=== PATIENT | female | born 1950 | race Caucasian/White ===

== ENCOUNTER 2017-04-06 16:58 | Inpatient (IN) | payer OTHER ==
[~2017-04-06] VITALS: Ht 170.2 cm; Wt 106.0 kg
[~2017-04-06 16:58] MED LIST: CEFUROXIME SODIUM 1.5 GM VIAL IVP SCH
[2017-04-06] MEDS ORDERED: TICAGRELOR 90 MG TABLET ONE (17:04)
[2017-04-06] MEDS ORDERED: HEPARIN SODIUM 5000UNIT/ML 1ML VIAL ONE (17:06)
[2017-04-06] MEDS ORDERED: ONDANSETRON HCL 4 MG/2 ML VIAL ONE (17:07)
[2017-04-06 17:14] LABS: BASOPHILS % (AUTO) 0.4 % (0.0-5.0); EOSINOPHILS % (AUTO) 1.8 % (0.0-8.0); HEMATOCRIT 40.7 % (36-48); LYMPHOCYTES % (AUTO) 21.7 % (21.0-51.0); MEAN CORPUSCULAR HEMOGLOBIN 29.6 pg (27.0-33.0); MEAN CORPUSCULAR HGB CONC 32.5 g/dL (32.0-36.0); MEAN CORPUSCULAR VOLUME 91.1 fL (79-99); MONOCYTES % (AUTO) 5.1 % (3.0-13.0); PLATELET COUNT (AUTO) 310 K/uL (130-400); RED BLOOD CELL COUNT(AUTO) 4.47 MIL/uL (4.00-5.50); RED CELL DISTRIBUTION WIDTH 13.4 % (11.0-15.5); WHITE BLOOD COUNT (AUTO) 12.9 K/uL (4.8-10.8)
[2017-04-06] MEDS ORDERED: IOPAMIDOL-370 75 ML VIAL IV ONE (17:23)
[2017-04-06] MEDS ORDERED: ATROPINE SULFATE 0.1 MG/ML 10 ML SYG IVP ONE (17:23)
[2017-04-06] MEDS ORDERED: NITROGLYCERIN 5 MG/ML 10 ML VIAL IV ONE (17:23)
[2017-04-06] MEDS ORDERED: HEPARIN SODIUM 1000UNIT/ML 10ML VIAL ONE ×4 (17:23→19:13)
[2017-04-06] MEDS ORDERED: IOPAMIDOL-370 100 ML VIAL IV ONE (17:23)
[2017-04-06] MEDS ORDERED: LIDOCAINE HCL 2% 20ML ONE (17:23)
[2017-04-06] MEDS ORDERED: DOPAMINE HCL 400 MG/D5%-WATER 0 ML IV ONE (17:23)
[2017-04-06 17:36] LABS: POTASSIUM 3.4 mmol/L (3.5-5.1)
[2017-04-06] MEDS ORDERED: CEFUROXIME 1.5GM+NS 100ML 100 ML IV SCH (18:00)
[2017-04-06 18:37] LABS: HEMOGLOBIN A1C 5.9 % (4.0-6.0)
[2017-04-06] MEDS ORDERED: PROPOFOL 10 MG/ML 20ML VIAL IV ONE (18:40)
[2017-04-06] MEDS ORDERED: GLYCOPYRROLATE 0.2 MG/ML 5 ML VIAL ONE (18:40)
[2017-04-06] MEDS ORDERED: ESMOLOL HCL 10 MG/ML 10 ML VIAL ONE (18:40)
[2017-04-06] MEDS ORDERED: AMIODARONE HCL 900MG/18ML IV ONE (18:40)
[2017-04-06] MEDS ORDERED: CALCIUM CHLORIDE 100 MG/ML 10 ML SYG IVP ONE ×2 (18:40→18:43)
[2017-04-06] MEDS ORDERED: NOREPINEPHRINE BITARTRATE 1 MG/1 ML ML IV ONE (18:40)
[2017-04-06] MEDS ORDERED: AMINOCAPROIC ACID 250 MG/ML 20 ML VIAL IV ONE (18:40)
[2017-04-06] MEDS ORDERED: MILRINONE-D5W 20 MG/100 ML 0 ML IV ONE (18:40)
[2017-04-06] MEDS ORDERED: PROTAMINE SULFATE 10 MG/ML 25ML VIAL IV ONE (18:40)
[2017-04-06] MEDS ORDERED: ROCURONIUM BROMIDE 10MG/1ML 5ML VL ONE (18:40)
[2017-04-06] MEDS ORDERED: EPINEPHRINE 1 MG/ML AMPULE ONE (18:40)
[2017-04-06] MEDS ORDERED: LIDOCAINE PF 2% 5ML ABBOJECT ONE (18:40)
[2017-04-06] MEDS ORDERED: MIDAZOLAM HCL 1 MG/ML 5ML VIAL ONE (18:41)
[2017-04-06] MEDS ORDERED: FENTANYL CITRATE PF 50 MCG/1 ML 20ML VIAL IJ ONE (18:41)
[2017-04-06] MEDS ORDERED: THROMBIN-JMI 5000 UNIT/VIAL TP ONE (18:44)
[2017-04-06] MEDS ORDERED: SODIUM BICARB 50MEQ 50ML VIAL ONE ×2 (18:45→23:19)
[2017-04-06] MEDS ORDERED: CEFUROXIME SODIUM 1.5 GM VIAL IVP SCH (18:45)
[2017-04-06] MEDS ORDERED: NITROGLYCERIN 50 MG/D5% WATER 1 BOT ONE (18:46)
[2017-04-06 18:50] LABS: INR 1.08 (0.85-1.15); PROTHROMBIN TIME 11.3 SEC (9.6-11.6)
[2017-04-06 19:12] LABS: ABG BASE EXCESS -3.1 mmol/L (-2.0-3.0); ABG HCO3 21.6 mmol/L (21.0-28.0); ABG OXYGEN SATURATION 99.1 % (95.0-99.0); ABG PCO2 38 mmHg (32-45)
[2017-04-06] MEDS ORDERED: PAPAVERINE HCL 30 MG/ML 2ML VIAL ONE (19:13)
[2017-04-06] MEDS ORDERED: CEFUROXIME SODIUM 1.5 GM VIAL ONE (19:18)
[2017-04-06 19:39] LABS: PARTIAL THROMBOPLASTIN TIME > 120.0 SEC (26.3-35.5)
[2017-04-06 20:01] LABS: HEMATOCRIT 35.3 % (36-48); PLATELET COUNT (AUTO) 247 K/uL (130-400); PLATELET FUNCTION ANALYSIS EPI 188 SEC (55-192)
[2017-04-06 20:02] LABS: PLATELET FUNCTION ANALYSIS ADP 72 SEC (62-100)
[2017-04-06 20:03] LABS: BASOPHILS % (AUTO) 0.3 % (0.0-5.0); EOSINOPHILS % (AUTO) 0.5 % (0.0-8.0); HEMATOCRIT 35.3 % (36-48); LYMPHOCYTES % (AUTO) 15.3 % (21.0-51.0); MEAN CORPUSCULAR HGB CONC 32.7 g/dL (32.0-36.0); MEAN CORPUSCULAR VOLUME 91.8 fL (79-99); MONOCYTES % (AUTO) 5.1 % (3.0-13.0); NEUTROPHILS % (AUTO) 78.8 % (40.0-77.0); PLATELET COUNT (AUTO) 247 K/uL (130-400); RED BLOOD CELL COUNT(AUTO) 3.85 MIL/uL (4.00-5.50); RED CELL DISTRIBUTION WIDTH 13.6 % (11.0-15.5); WHITE BLOOD COUNT (AUTO) 13.1 K/uL (4.8-10.8)
[2017-04-06] MEDS: OCTYL 2-CYANOACRYLATE 1 EACH TP ONE ×2 (20:05→21:19)
[2017-04-06] MEDS: BACITRACIN 50,000 UNIT VIAL ONE ×2 (20:05→21:21)
[2017-04-06 20:07] LABS: ABG BASE EXCESS 2.3 mmol/L (-2.0-3.0); ABG HCO3 26.6 mmol/L (21.0-28.0); ABG OXYGEN SATURATION 98.9 % (95.0-99.0); ABG PCO2 40 mmHg (32-45)
[2017-04-06] MEDS ORDERED: SODIUM CHLORIDE 0.9% 500ML 500 ML IV SCH (20:09)
[2017-04-06] MEDS ORDERED: SODIUM CHLORIDE 0.9% 1000ML 1,000 ML IV SCH (20:15)
[2017-04-06] MEDS ORDERED: ONDANSETRON HCL 4 MG/2 ML VIAL IV PRN (20:15)
[2017-04-06] MEDS ORDERED: PROPOFOL 1000 MG/100 ML 100 ML IV PRN (20:15)
[2017-04-06] MEDS ORDERED: GLUCAGON 1MG KIT 1 MG ML IM PRN (20:15)
[2017-04-06] MEDS ORDERED: ACETAMINOPHEN 650 MG SUPPOSITORY RC PRN (20:15)
[2017-04-06] MEDS ORDERED: INSULIN REGULAR, HUMAN 3ML 100 UNIT in SODIUM CHLORIDE 0.9% 99 ML IV SCH ×2 (20:15)
[2017-04-06] MEDS ORDERED: SODIUM CHLORIDE 0.9% 10 ML VIAL IVP PRN (20:15)
[2017-04-06] MEDS ORDERED: NICARDIPINE HCL 100 MG in SODIUM CHLORIDE 0.9% 100 ML IV PRN (20:15)
[2017-04-06] MEDS ORDERED: AMINOCAPROIC ACID 15,000 MG in SODIUM CHLORIDE 0.9% 250 ML IV SCH (20:15)
[2017-04-06] MEDS ORDERED: NITROGLYCERIN 50 MG/D5% WATER 250 BOT IV SCH (20:15)
[2017-04-06] MEDS ORDERED: POTASSIUM PHOS 15 mMOL+NS250ML 250 ML IV PRN (20:15)
[2017-04-06] MEDS ORDERED: EPINEPHRINE 2 MG in SODIUM CHLORIDE 0.9% 250 ML IV PRN (20:15)
[2017-04-06] MEDS ORDERED: MAGNESIUM 2GM PREMIX 50ML 50 ML IV PRN (20:15)
[2017-04-06] MEDS ORDERED: CALCIUM GLUCONATE 1 GM in SODIUM CHLORIDE 0.9% 50 ML IV PRN (20:15)
[2017-04-06] MEDS ORDERED: NOREPINEPHRINE 4MG/NS 250ML 250 ML IV PRN (20:15)
[2017-04-06] MEDS ORDERED: DEXTROSE 50%-WATER 50 ML DISP.SYRIN IV PRN (20:15)
[2017-04-06] MEDS ORDERED: SODIUM CHLORIDE 0.9% 250 ML IV PRN (20:15)
[2017-04-06] MEDS ORDERED: ACETAMINOPHEN 325 MG TAB PO PRN (20:15)
[2017-04-06] MEDS ORDERED: SODIUM BICARB 8.4% 50ML SYRINGE IV PRN (20:15)
[2017-04-06 20:37] LABS: ABG BASE EXCESS -2.8 mmol/L (-2.0-3.0); ABG HCO3 22.8 mmol/L (21.0-28.0); ABG OXYGEN SATURATION 98.3 % (95.0-99.0); ABG PCO2 42 mmHg (32-45)
[2017-04-06] MEDS ORDERED: EPINEPHRINE 2 MG in SODIUM CHLORIDE 0.9% 250 ML IVP PRN (20:45)
[2017-04-06 21:05] VITALS: BP 128/73
[2017-04-06 21:15] VITALS: BP 141/79
[2017-04-06 21:30] VITALS: BP 156/99
[2017-04-06 21:35] LABS: ABG BASE EXCESS -2.6 mmol/L (-2.0-3.0); ABG HCO3 22.9 mmol/L (21.0-28.0); ABG OXYGEN SATURATION 95.4 % (95.0-99.0); ABG PCO2 42 mmHg (32-45)
[2017-04-06 21:45] LABS: HEMATOCRIT 34.1 % (36-48); MEAN CORPUSCULAR HEMOGLOBIN 29.6 pg (27.0-33.0); MEAN CORPUSCULAR HGB CONC 32.8 g/dL (32.0-36.0); MEAN CORPUSCULAR VOLUME 90.2 fL (79-99); PLATELET COUNT (AUTO) 296 K/uL (130-400); RED BLOOD CELL COUNT(AUTO) 3.77 MIL/uL (4.00-5.50); RED CELL DISTRIBUTION WIDTH 13.1 % (11.0-15.5)
[2017-04-06 21:47] LABS: WHITE BLOOD COUNT (AUTO) 30.9 K/uL (4.8-10.8)
[2017-04-06 21:56] LABS: CREATININE 0.8 mg/dL (0.5-1.5); MAGNESIUM 1.7 mg/dL (1.80-2.40); PHOSPHORUS 4.7 mg/dL (2.5-4.9); POTASSIUM 3.1 mmol/L (3.5-5.1)
[2017-04-06 22:00] VITALS: BP 142/80
[2017-04-06] MEDS: MORPHINE SULFATE 4 MG/1ML SYG IV PRN ×2 (22:18→23:56)
[2017-04-06] MEDS: POTASSIUM CHLORIDE 20MEQ/100ML 100 ML IV PRN (22:18)
[2017-04-06 22:30] VITALS: BP 135/70
[2017-04-06 22:33] LABS: BAND NEUTROPHILS % (MANUAL) 7 % (0-2); LYMPHOCYTES % (MANUAL) 18 % (22-44); MAN.DIFF COMMENT-IMPRESSION MANUAL DIFFERENTIAL; SEGMENTED NEUTROPHILS % 75 % (40-70)
[2017-04-06 22:35] LABS: PLATELET MORPHOLOGY COMMENT PLT CLUMPS PRESENT
[2017-04-06 23:00] VITALS: BP 139/76
[2017-04-06 23:18] LABS: ABG BASE EXCESS -4.9 mmol/L (-2.0-3.0); ABG HCO3 19.8 mmol/L (21.0-28.0); ABG OXYGEN SATURATION 97.4 % (95.0-99.0); ABG PCO2 36 mmHg (32-45)
[2017-04-07] VITALS (24 sets, daily range): BP systolic 100–128; BP diastolic 58–74
[2017-04-07 00:45] LABS: ABG BASE EXCESS -1.9 mmol/L (-2.0-3.0); ABG HCO3 22.9 mmol/L (21.0-28.0); ABG OXYGEN SATURATION 98.6 % (95.0-99.0); ABG PCO2 40 mmHg (32-45)
[2017-04-07] MEDS: HYDROCODONE/ACETAMINOPHEN 5/325 MG TAB PO PRN ×3 (01:43→12:34)
[2017-04-07] MEDS: POTASSIUM CHLORIDE 20MEQ/100ML 100 ML IV PRN (02:46)
[2017-04-07] MEDS: MORPHINE SULFATE 2 MG/ML 1ML SYG IV PRN ×3 (02:55→20:55)
[2017-04-07 03:28] LABS: HEMATOCRIT 34.2 % (36-48); MEAN CORPUSCULAR HEMOGLOBIN 29.9 pg (27.0-33.0); MEAN CORPUSCULAR HGB CONC 32.6 g/dL (32.0-36.0); MEAN CORPUSCULAR VOLUME 91.7 fL (79-99); PLATELET COUNT (AUTO) 336 K/uL (130-400); RED BLOOD CELL COUNT(AUTO) 3.72 MIL/uL (4.00-5.50); RED CELL DISTRIBUTION WIDTH 13.3 % (11.0-15.5); WHITE BLOOD COUNT (AUTO) 27.9 K/uL (4.8-10.8)
[2017-04-07 03:42] LABS: CREATININE 0.9 mg/dL (0.5-1.5); MAGNESIUM 2.7 mg/dL (1.80-2.40); PHOSPHORUS 3.7 mg/dL (2.5-4.9); POTASSIUM 4.2 mmol/L (3.5-5.1)
[2017-04-07] MEDS ORDERED: CEFUROXIME 1.5GM+NS 100ML 100 ML IV SCH (04:15)
[2017-04-07] MEDS ORDERED: crestor (04:43)
[2017-04-07] MEDS ORDERED: SERT100T PO (04:43)
[2017-04-07] MEDS: SERTRALINE HCL 50 MG TABLET PO SCH (08:19)
[2017-04-07] MEDS ORDERED: PANTOPRAZOLE 40 MG/VIAL IV SCH (09:00)
[2017-04-07] MEDS: PANTOPRAZOLE SODIUM 40 MG TABLET.DR PO SCH (09:35)
[2017-04-07] MEDS ORDERED: FUROSEMIDE 10 MG/ML 2ML VIAL IV ONE (17:15)
[2017-04-07] MEDS: ALBUMIN (HUMAN) 5% 250 ML IV PRN (17:29)
[2017-04-07] MEDS ORDERED: CEFUROXIME SODIUM 1.5 GM VIAL IVP SCH (17:45)
[2017-04-07] MEDS ORDERED: WATER FOR INJECTION,STERILE 20 ML VIAL IJ SCH ×2 (17:45→19:30)
[2017-04-07] MEDS ORDERED: IPRATROPIUM/ALBUTEROL SULFATE 3 ML SOLUTION IH PRN (20:00)
[2017-04-07] MEDS: ATORVASTATIN CALCIUM 10 MG TABLET PO SCH (20:55)
[2017-04-08] VITALS (21 sets, daily range): BP systolic 96–150; BP diastolic 53–88
[2017-04-08] MEDS: HYDROCODONE/ACETAMINOPHEN 5/325 MG TAB PO PRN ×3 (00:35→20:21)
[2017-04-08] MEDS: PANTOPRAZOLE SODIUM 40 MG TABLET.DR PO SCH (06:30)
[2017-04-08 06:49] LABS: BASOPHILS % (AUTO) 0.3 % (0.0-5.0); HEMATOCRIT 33.1 % (36-48); LYMPHOCYTES % (AUTO) 6.5 % (21.0-51.0); MEAN CORPUSCULAR HGB CONC 32.6 g/dL (32.0-36.0); MONOCYTES % (AUTO) 3.7 % (3.0-13.0); NEUTROPHILS % (AUTO) 89.5 % (40.0-77.0); PLATELET COUNT (AUTO) 217 K/uL (130-400); RED CELL DISTRIBUTION WIDTH 13.8 % (11.0-15.5); WHITE BLOOD COUNT (AUTO) 18.6 K/uL (4.8-10.8)
[2017-04-08 06:51] LABS: CREATININE 0.7 mg/dL (0.5-1.5); POTASSIUM 3.6 mmol/L (3.5-5.1)
[2017-04-08] MEDS: SERTRALINE HCL 50 MG TABLET PO SCH (08:33)
[2017-04-08] MEDS: METOPROLOL TARTRATE 25 MG TAB PO SCH ×2 (08:33→20:18)
[2017-04-08] MEDS: ASPIRIN 81MG TAB.CHEW PO SCH (08:33)
[2017-04-08] MEDS ORDERED: FUROSEMIDE 20 MG TABLET PO SCH (09:00)
[2017-04-08] MEDS: FUROSEMIDE 10 MG/ML 2ML VIAL IV SCH ×2 (09:11→20:18)
[2017-04-08] MEDS: POTASSIUM CHLORIDE 20 MEQ ERTAB PO SCH ×2 (09:12→20:18)
[2017-04-08] MEDS: ATORVASTATIN CALCIUM 10 MG TABLET PO SCH (20:22)
[2017-04-09] VITALS (8 sets, daily range): BP systolic 95–133; BP diastolic 58–87
[2017-04-09 04:01] LABS: HEMATOCRIT 35.2 % (36-48); MEAN CORPUSCULAR HEMOGLOBIN 29.9 pg (27.0-33.0); MEAN CORPUSCULAR HGB CONC 32.2 g/dL (32.0-36.0); MEAN CORPUSCULAR VOLUME 92.7 fL (79-99); PLATELET COUNT (AUTO) 255 K/uL (130-400); RED BLOOD CELL COUNT(AUTO) 3.79 MIL/uL (4.00-5.50); RED CELL DISTRIBUTION WIDTH 13.6 % (11.0-15.5); WHITE BLOOD COUNT (AUTO) 21.9 K/uL (4.8-10.8)
[2017-04-09 04:18] LABS: CREATININE 0.7 mg/dL (0.5-1.5); POTASSIUM 4.2 mmol/L (3.5-5.1)
[2017-04-09] MEDS: PANTOPRAZOLE SODIUM 40 MG TABLET.DR PO SCH (06:29)
[2017-04-09] MEDS: HYDROCODONE/ACETAMINOPHEN 5/325 MG TAB PO PRN ×3 (06:30→18:55)
[2017-04-09] MEDS: FUROSEMIDE 10 MG/ML 2ML VIAL IV SCH ×2 (08:08→20:26)
[2017-04-09] MEDS: POTASSIUM CHLORIDE 20 MEQ ERTAB PO SCH ×2 (08:12→20:27)
[2017-04-09] MEDS: SERTRALINE HCL 50 MG TABLET PO SCH (08:12)
[2017-04-09] MEDS: ASPIRIN 81MG TAB.CHEW PO SCH (08:12)
[2017-04-09] MEDS: METOPROLOL TARTRATE 25 MG TAB PO SCH ×2 (08:13→20:27)
[2017-04-09] MEDS: ATORVASTATIN CALCIUM 10 MG TABLET PO SCH (20:26)
[2017-04-10 00:37] VITALS: BP 111/64
[2017-04-10 04:00] VITALS: BP 128/73
[2017-04-10 05:19] LABS: HEMATOCRIT 33.1 % (36-48); MEAN CORPUSCULAR HEMOGLOBIN 30.3 pg (27.0-33.0); MEAN CORPUSCULAR HGB CONC 32.9 g/dL (32.0-36.0); MEAN CORPUSCULAR VOLUME 92.2 fL (79-99); PLATELET COUNT (AUTO) 240 K/uL (130-400); RED BLOOD CELL COUNT(AUTO) 3.59 MIL/uL (4.00-5.50); RED CELL DISTRIBUTION WIDTH 14.1 % (11.0-15.5); WHITE BLOOD COUNT (AUTO) 14.9 K/uL (4.8-10.8)
[2017-04-10 05:37] LABS: CREATININE 0.7 mg/dL (0.5-1.5); POTASSIUM 4.4 mmol/L (3.5-5.1)
[2017-04-10] MEDS: PANTOPRAZOLE SODIUM 40 MG TABLET.DR PO SCH (06:30)
[2017-04-10 07:44] VITALS: BP_SYST 121; BP_SYST 130; BP_DIAS 72; BP_DIAS 81
[2017-04-10] MEDS: METOPROLOL TARTRATE 25 MG TAB PO SCH ×2 (08:45→20:25)
[2017-04-10] MEDS: POTASSIUM CHLORIDE 20 MEQ ERTAB PO SCH ×2 (08:45→20:25)
[2017-04-10] MEDS: SERTRALINE HCL 50 MG TABLET PO SCH (08:45)
[2017-04-10] MEDS: ASPIRIN 81MG TAB.CHEW PO SCH (08:45)
[2017-04-10] MEDS: FUROSEMIDE 10 MG/ML 2ML VIAL IV SCH (08:54)
[2017-04-10] MEDS: HYDROCODONE/ACETAMINOPHEN 5/325 MG TAB PO PRN ×2 (09:20→17:12)
[2017-04-10 11:20] VITALS: BP 117/60
[2017-04-10 16:05] VITALS: BP 114/71
[2017-04-10] MEDS: FUROSEMIDE 20 MG TABLET PO SCH (17:02)
[2017-04-10 20:06] VITALS: BP 112/64
[2017-04-10] MEDS ORDERED: ATORVASTATIN CALCIUM 40 MG TABLET PO SCH (21:00)
[2017-04-11 00:12] VITALS: BP 114/75
[2017-04-11] MEDS: HYDROCODONE/ACETAMINOPHEN 5/325 MG TAB PO PRN (03:34)
[2017-04-11] MEDS: FUROSEMIDE 20 MG TABLET PO SCH (03:35)
[2017-04-11 04:31] VITALS: BP 123/79
[2017-04-11] MEDS: PANTOPRAZOLE SODIUM 40 MG TABLET.DR PO SCH (07:09)
[2017-04-11] MEDS ORDERED: CLOP75TA14 PO (07:33)
[2017-04-11] MEDS ORDERED: METO25 PO (07:33)
[2017-04-11] MEDS ORDERED: ASPI-1005 PO (07:33)
[2017-04-11 07:48] VITALS: BP 105/62
[2017-04-11] MEDS ORDERED: CLOPIDOGREL BISULFATE 75 MG TAB PO SCH (09:00)
[2017-04-11] MEDS: METOPROLOL TARTRATE 25 MG TAB PO SCH (09:14)
[2017-04-11] MEDS: ASPIRIN 81MG TAB.CHEW PO SCH (09:14)
[2017-04-11] MEDS: SERTRALINE HCL 50 MG TABLET PO SCH (09:14)
[2017-04-11] MEDS: POTASSIUM CHLORIDE 20 MEQ ERTAB PO SCH (09:15)
[2017-04-11] MEDS ORDERED: TRAM50TA2 PO (09:36)
[2017-04-11] MEDS ORDERED: ATOR40TA69 PO (09:36)
[2017-04-11 11:18] VITALS: BP 116/74
== END 2017-04-11 13:40 | disposition home or self-care (01) | DRG 233 ==
LOC: EDH 16:58 → EDHIP 17:15 → 2CV 19:46 → 2CH 04-07 11:30 → 2AH 04-09 10:40
PROVIDERS: ADMIT Internal Medicine Cardiovascular Disease; ATTEND Internal Medicine Cardiovascular Disease
PROC: 4A023N7 Measurement of Cardiac Sampling and Pressure, Left Heart, Percutaneous Approach (ICD-10-PCS; 2017-04-06)
PROC: 5A02210 Assistance with Cardiac Output using Balloon Pump, Continuous (ICD-10-PCS; 2017-04-06)
PROC: B2111ZZ Fluoroscopy of Multiple Coronary Arteries using Low Osmolar Contrast (ICD-10-PCS; 2017-04-06)
PROC: B2151ZZ Fluoroscopy of Left Heart using Low Osmolar Contrast (ICD-10-PCS; 2017-04-06)
PROC: 02100Z9 Bypass Coronary Artery, One Artery from Left Internal Mammary, Open Approach (ICD-10-PCS; principal; 2017-04-06 18:50)
PROC: 021009W Bypass Coronary Artery, One Artery from Aorta with Autologous Venous Tissue, Open Approach (ICD-10-PCS; 2017-04-06 18:50)
PROC: 06BQ4ZZ Excision of Left Saphenous Vein, Percutaneous Endoscopic Approach (ICD-10-PCS; 2017-04-06 18:50)
DX: I21.4 Non-ST elevation (NSTEMI) myocardial infarction (principal); R57.0 Cardiogenic shock; D62 Acute posthemorrhagic anemia; I25.2 Old myocardial infarction; R06.89 Other abnormalities of breathing; I25.10 Atherosclerotic heart disease of native coronary artery without angina pectoris; I25.5 Ischemic cardiomyopathy; E66.9 Obesity, unspecified; E78.5 Hyperlipidemia, unspecified; E83.42 Hypomagnesemia; F32.9 Major depressive disorder, single episode, unspecified; G47.33 Obstructive sleep apnea (adult) (pediatric); I10 Essential (primary) hypertension; Z79.82 Long term (current) use of aspirin; Z79.899 Other long term (current) drug therapy; Z82.49 Family history of ischemic heart disease and other diseases of the circulatory system; Z87.891 Personal history of nicotine dependence; Z68.36 Body mass index [BMI] 36.0-36.9, adult
CPT/HCPCS: 33967; 36415; 36600; 71045; 80048; 82330; 82435; 82803; 82947; 82948; 83036; 83605; 83735; 84100; 84132; 84295; 84484; 85007; 85018; 85025; 85027; 85347; 85576; 85610; 85730; 86850; 86900; 86901; 86922; 88313; 93005; 93458; 94002; 94150; 94664; 99291; A7048; C1894; C9113; J0171; J0282; J0461; J0697; J1265; J1644; J1815; J1940; J2001; J2250; J2260; J2270; J2405; J2440; J2704; J2720; J3010; J3475; J3480; J3490; J7030; J7040; J7120; P9034; P9045; Q9967